=== PATIENT | female | born 1995 | race Two or more races ===

== ENCOUNTER 2018-06-09 17:05 | Emergency (ER) | payer OTHER ==
[2018-06-09 17:22] VITALS: BP 116/69; PULSE 75; TEMP 98.3; BMI 21.2
--- NOTE | 2018-06-09 18:43 | PDOC ---
Documentation entered by Roberto Joe SCRIBE, acting as scribe for Moises Rivas MD. Moises Rivas MD: This documentation has been prepared by the scribe, Roberto Joe SCRIBE, under my direction and personally reviewed by me in its entirety. I confirm that the documentation accurately reflects all work, treatment, procedures, and medical decision making performed by me. History of Present Illness - General Chief Complaint: Eye Problem Stated Complaint: RIGHT EYELID REDNESS History Source: Patient Exam Limitations: No Limitations - History of Present Illness Initial Comments: 06/09/18 18:35 The patient is a 22 year old female with no significant past medical history who presents to the emergency department with right eye swelling for 4 days. The patient states that she was at home when she noticed her right eye swelling. The patient states that she took a nap and woke up with some eye swelling. She reports some associated pain with the swelling and states that it is worsened with blinking. The patient reports applying a warm compress to her eye with no apparent relief of her pain. She states that yesterday the swelling got so bad that she was unable to open her eyes. The patient states that her warm compress helped reduce the swelling by a great amount. She denies use of contacts. She denies any vision change or double vision. 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 She denies any other complaints. Past History - Past Medical History Allergies/Adverse Reactions: Allergies Allergy/AdvReac Type Severity Reaction Status Date / Time No Known Allergies Allergy Verified 06/09/18 17:17 Home Medications: Ambulatory Orders NK [No Known Home Medication] 06/09/18 COPD: No - Immunization History Immunization Up to Date: Yes - Suicide/Smoking/Psychosocial Hx Smoking History: Never smoked Hx Alcohol Use: No Drug/Substance Use Hx: No Review of Systems - Review of Systems Able to Perform ROS?: Yes Comments:: 06/09/18 18:35 Constitutional - Pt denies Fever, Chills, weakness, HEENT: (+)right eye swelling and pain. denies vision changes, sore throat Respiratory: Denies cough, sob, hemoptysis Cardiac: denies chest pain, palpitations, lightheadedness, leg swelling Abd/GI: denies abd pain, nausea, vomiting, blood per rectum, melena, diarrhea : denies dysuria, frequency, discharge Musculoskeletal - denies back pain, joint swelling skin - denies bruising, erythema, rash neurological: denies headache, numbness, focal weakness, tingling, ataxia, weakness hematologic: denies anemia, easy bruising, easy bleeding *Physical Exam - Vital Signs Last Vital Signs Temp Pulse Resp BP Pulse Ox 98.3 F 75 16 116/69 100 06/09/18 17:16 06/09/18 17:16 06/09/18 17:16 06/09/18 17:16 06/09/18 17:16 - Physical Exam Comments: 06/09/18 18:21 GENERAL: The patient is awake, alert, and fully oriented, Nontoxic - in no acute distress. HEAD: Normocephalic, atraumatic. EYES: extraocular movements intact, sclera anicteric, conjunctiva clear. R sty on medial upper lid mild eyelid edema, no erythema ENT: Normal voice, Moist mucous membranes. NECK: Normal range of motion, supple Medical Decision Making - Medical Decision Making 06/09/18 18:26 stye - warm compresses/massage no signs of cellulitis no vision changes no contact use no conjunvtivitis 06/09/18 18:28 *DC/Admit/Observation/Transfer Diagnosis at time of Disposition: Stye Qualifiers: Laterality: right Eyelid: upper Qualified Code(s): H00.011 - Hordeolum externum right upper eyelid - Discharge Dispostion Disposition: HOME Condition at time of disposition: Improved Decision to Admit order: No - Referrals - Patient Instructions Printed Discharge Instructions: DI for Hordeolum Additional Instructions: Return to the emergency department immediately with ANY new, persistent or worsening symptoms including increased cline, fever, vision changes or other concerns. Continue using warm compresses to her eyes 10 minutes several times a day. You can gently massage the area and gently scrub wit baby shampoo You MUST call and follow up with your doctor tomorrow for further evaluation of your symptoms. Results were discussed with you. Please make sure your doctor reviews the results of your emergency evaluation. Print Language: LATVIAN - Post Discharge Activity
== END 2018-06-09 18:40 | disposition home or self-care (01) ==
LOC: FER 17:05
DX: H00.011 Hordeolum externum right upper eyelid (principal)
CPT/HCPCS: 99282-25

== ENCOUNTER 2018-10-30 17:49 | Emergency (ER) | payer OTHER ==
[2018-10-30 17:53] VITALS: BMI 21.2
[2018-10-30 18:22] VITALS: BP 121/82; PULSE 81; TEMP 99
[2018-10-30 18:30] LABS: EPITHELIAL CELLS MANY /hpf
[2018-10-30] MEDS ORDERED: SODIUM CHLORIDE 0.9% 500 ML INFUS.BAG IV ONE (18:36)
[2018-10-30] MEDS ORDERED: ONDANSETRON 4 MG/2 ML VIAL IVPUSH ONE (18:36)
[2018-10-30] MEDS ORDERED: FAMOTIDINE 20 MG/50 ML IVPB 20 MG/50 ML MG IVPB ONE ×2 (18:36→18:47)
[2018-10-30] MEDS ORDERED: ONDANSETRON 4 MG/2 ML VIAL ONE (18:47)
[2018-10-30 19:13] LABS: BASO % 0.2 % (0-2.0); EOS % 0.1 % (0-4.5); HEMOGLOBIN 12.1 GM/dl (10.7-15.3); LYMPH % 27.2 % (8-40); MCH 29.5 pg (25.7-33.7); MCHC 33.8 g/dl (32.0-36.0); MEAN CELL VOLUME 87.2 fl (80-96); MEAN PLT VOLUME 9.4 fl (7.5-11.1); MONO % 7.5 % (3.8-10.2); RBC 4.12 M/mm3 (3.60-5.2); WHITE BLOOD COUNT 8.9 K/mm3 (4.0-10.8)
[2018-10-30 19:28] LABS: ALBUMIN 4.1 g/dl (3.4-5.0); BILIRUBIN,TOTAL 0.5 mg/dl (0.2-1); CALCIUM 8.9 mg/dl (8.5-10); CREATININE 0.6 mg/dl (0.55-1.3); POTASSIUM 3.4 mmol/L (3.5-5.1); TOT PROT 7.2 g/dl (6.4-8.2)
[2018-10-30 19:50] LABS: PLATELET COUNT 232 K/MM3 (134-434)
--- NOTE | 2018-10-30 21:03 | PDOC ---
*Physical Exam - Vital Signs Last Vital Signs Temp Pulse Resp BP Pulse Ox 99.0 F 81 15 121/82 100 10/30/18 17:49 10/30/18 17:49 10/30/18 17:49 10/30/18 17:49 10/30/18 17:49 ED Treatment Course - LABORATORY CBC & Chemistry Diagram: 10/30/18 18:43 10/30/18 18:43 - ADDITIONAL ORDERS Additional order review: Laboratory Results 10/30/18 10/30/18 10/30/18 18:43 18:43 17:55 Sodium 137 Potassium 3.4 L Chloride 105 Carbon Dioxide 23 Anion Gap 9 BUN 9.0 Creatinine 0.6 Est GFR (CKD-EPI)AfAm 152.08 Est GFR (CKD-EPI)NonAf 131.21 Random Glucose 88 Calcium 8.9 Total Bilirubin 0.5 AST 18 ALT 15 Alkaline Phosphatase 46 Total Protein 7.2 Albumin 4.1 Lipase 78 Urine Color Dark Urine Appearance Slightly Urine pH 6.0 Urine Protein Trace Urine Glucose (UA) Negative Urine Ketones 3+ H Urine Blood 3+ H Urine Nitrite Negative Urine Bilirubin Negative Urine Urobilinogen 0.2 Ur Leukocyte Esterase Trace H Urine RBC 10-20 Urine WBC 2-5 Ur Transition Epith Cell Many Urine Bacteria Moderate Urine HCG, Qual 10/30/18 17:55 Sodium Potassium Chloride Carbon Dioxide Anion Gap BUN Creatinine Est GFR (CKD-EPI)AfAm Est GFR (CKD-EPI)NonAf Random Glucose Calcium Total Bilirubin AST ALT Alkaline Phosphatase Total Protein Albumin Lipase Urine Color Urine Appearance Urine pH Urine Protein Urine Glucose (UA) Urine Ketones Urine Blood Urine Nitrite Urine Bilirubin Urine Urobilinogen Ur Leukocyte Esterase Urine RBC Urine WBC Ur Transition Epith Cell Urine Bacteria Urine HCG, Qual Negative 10/30/18 18:43 RBC 4.12 MCV 87.2 MCHC 33.8 RDW 13.0 MPV 9.4 Neutrophils % 65.0 Lymphocytes % 27.2 Monocytes % 7.5 Eosinophils % 0.1 Basophils % 0.2 - Medications Given in the ED: ED Medications Discontinued Medications Generic Name Dose Route Start Last Admin Trade Name Freq PRN Reason Stop Dose Admin Famotidine/Sodium Chloride 20 mg in 50 mls @ 100 mls/hr 10/30/18 18:36 18:51 Pepcid 20 Mg Premixed Ivpb - IVPB 10/30/18 19:05 100 mls/hr ONCE ONE Administration Ondansetron HCl 4 mg 10/30/18 18:36 10/30/18 18:51 Zofran Injection IVPUSH 10/30/18 18:37 4 mg ONCE ONE Administration Sodium Chloride 1,000 ml 10/30/18 18:36 10/30/18 18:51 Normal Saline - IV 10/30/18 18:37 1,000 ml ONCE ONE Administration Medical Decision Making - Medical Decision Making 10/30/18 20:59 22 F with epigastric pain, N+V. - Labs all wnl Pt reassessed - feels significantly better after GI cocktail/ Now denies any nausea. Still endorsing mild LUQ pain. Tolerating PO. Pt is well appearing, with normal vitals. Clinically stable for DC at this time. I discussed the physical exam findings, ancillary test results and final diagnoses with the patient. I answered all of the patient's questions. The patient was satisfied with the care received and felt comfortable with the discharge plan and treatment plan. The patient agrees to follow up with the primary care physician within 24-72 hours. *DC/Admit/Observation/Transfer Diagnosis at time of Disposition: Epigastric pain, Nausea, Vomiting - Discharge Dispostion Disposition: HOME Condition at time of disposition: Stable - Referrals Referrals: Gabriel Pena MD [Staff Physician] - - Patient Instructions Printed Discharge Instructions: DI for Gastritis Additional Instructions: Your bloodwork today was normal. However, this does not rule out all serious problems. Follow up with a geologic technician within 1 week for further evaluation of your abdominal pain and nausea. You may need an endoscopy. Call the number provided to make an appointment. If you experience worsening pain, nausea, vomiting, fevers, or any other concerning symptoms, return to the ER immediately. - Post Discharge Activity - Attestations Physician Attestion: 10/30/18 21:03 I, Dr. Jaya Soria MD, attest that this document has been prepared under my direction and personally reviewed by me in its entirety. I further attest, that it accurately reflects all work, treatment, procedures and medical decision -making performed by me.
== END 2018-10-30 21:08 | disposition home or self-care (01) ==
LOC: FER 17:49
PROC: 3E0337Z Introduction of Electrolytic and Water Balance Substance into Peripheral Vein, Percutaneous Approach (ICD-10-PCS; principal; 2018-10-30)
PROC: 3E033GC Introduction of Other Therapeutic Substance into Peripheral Vein, Percutaneous Approach (ICD-10-PCS; 2018-10-30)
DX: R10.13 Epigastric pain (principal); R11.2 Nausea with vomiting, unspecified
CPT/HCPCS: 36415; 80053; 81003; 81015; 83690; 84703; 85025; 99283-25

== ENCOUNTER 2021-10-14 18:55 | Emergency (ER) | payer OTHER ==
[2021-10-14 19:24] VITALS: BP 118/77; PULSE 77; RESP 20; TEMP 98.2; BMI 24.7
[2021-10-14] MEDS ORDERED: ACETAMINOPHEN 500 MG TABLET (FP) PO ONE (19:28)
[2021-10-14] MEDS ORDERED: METOCLOPRAMIDE HCL 10 MG TABLET (FP) PO ONE ×2 (19:28→19:30)
[2021-10-14] MEDS ORDERED: ACETAMINOPHEN 500 MG TABLET (FP) ONE (19:30)
== END 2021-10-14 20:18 | disposition home or self-care (01) ==
LOC: FER 18:55
DX: S00.03XA Contusion of scalp, initial encounter (principal); V49.40XA Driver injured in collision with unspecified motor vehicles in traffic accident, initial encounter
CPT/HCPCS: 72050-TC-FY; 99283-25

== ENCOUNTER 2022-03-05 16:30 | Emergency (ER) | payer OTHER ==
[2022-03-05 16:37] VITALS: BP 108/68; PULSE 92; RESP 18; TEMP 98.6; BMI 24.7
[2022-03-05] MEDS ORDERED: ALBUTEROL SO4 2.5/IPRATROPIUM 0.5 INH SOL 3 ML VIAL.NEB. NEB ONE ×3 (17:17→17:36)
[2022-03-05] MEDS ORDERED: predniSONE 20 MG TABLET (UD) PO ONE (17:37)
[2022-03-05] MEDS ORDERED: KETOROLAC TROMETHAMINE 30 MG/1 ML VIAL IM ONE (17:37)
== END 2022-03-05 18:50 | disposition home or self-care (01) ==
LOC: FER 16:30
PROC: 3E0F7GC Introduction of Other Therapeutic Substance into Respiratory Tract, Via Natural or Artificial Opening (ICD-10-PCS; principal; 2022-03-05)
PROC: 3E0233Z Introduction of Anti-inflammatory into Muscle, Percutaneous Approach (ICD-10-PCS; 2022-03-05)
DX: J45.901 Unspecified asthma with (acute) exacerbation (principal); J06.9 Acute upper respiratory infection, unspecified
CPT/HCPCS: 0241U-QW; 71046-TC-FY; 99284-25